=== PATIENT | female | born 1995 ===

== ENCOUNTER 2021-11-17 14:07 | Emergency (ER) | payer MEDICAID ==
[2021-11-17 14:21] VITALS: BP 129/87
[2021-11-17] MEDS ORDERED: IBUPROFEN 600 MG TAB PO ONE (14:45)
[2021-11-17] MEDS ORDERED: BUTALB/ACETAMINOPHEN/CAFFEINE TAB PO ONE (14:45)
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
[2021-11-17 15:57] LABS: Bilirubin,Urine NEG (Negative); Blood,Urine SM (Negative); Color,Urine Yellow (Yellow); Protein,Urine <15 mg/dL mg/dL (Negative); Urobilinogen,Urine < 2.0 mg/dL (<2.0)
[2021-11-17 16:02] LABS: HCG Qualitative,Urine Negative (Negative)
== END 2021-11-17 16:22 | disposition home or self-care (01) ==
LOC: ED 14:07
DX: S86.919A Strain of unspecified muscle(s) and tendon(s) at lower leg level, unspecified leg, initial encounter (principal); B37.3 Candidiasis of vulva and vagina; S09.90XA Unspecified injury of head, initial encounter; Z79.899 Other long term (current) drug therapy; V89.2XXA Person injured in unspecified motor-vehicle accident, traffic, initial encounter; Y93.89 Activity, other specified; Y92.89 Other specified places as the place of occurrence of the external cause; Y99.8 Other external cause status
CPT/HCPCS: 81001; 81025; 87086; 99283